=== PATIENT | female | born 1985 | race Caucasian/White ===

== ENCOUNTER 2023-12-02 20:10 | Emergency (ER) | payer BC ==
[2023-12-02] MEDS: Ketorolac 60 MG/2 ML SDV IM ONE (21:18)
== END 2023-12-02 21:52 ==
LOC: JD.ED 20:10
DX: S69.92XA Unspecified injury of left wrist, hand and finger(s), initial encounter (principal); Z88.8 Allergy status to other drugs, medicaments and biological substances; Z79.899 Other long term (current) drug therapy; W19.XXXA Unspecified fall, initial encounter
CPT/HCPCS: 73110; 96372; 99283; J1885; 99282